=== PATIENT | female | born 1995 | race Caucasian/White ===

== ENCOUNTER 2021-04-11 14:11 | Outpatient (CLI) | payer OTHER ==
--- NOTE | 2021-04-11 16:14 | MRI Report ---
PROCEDURE: Knee RT W/O INDICATIONS: RIGHT KNEE PAIN TECHNIQUE: Noncontrast sagittal PD fast spin echo and T2 fast spin echo with fat saturation, sagittal 3-D gradie nt sequence with fat saturation; coronal T1 spin echo and PD fast spin echo with fat saturation, and axial PD fast spin echo with fat saturation through the knee. COMPARISON: None. Findings: Medial meniscus: No surface communication/tear. Lateral meniscus: No surface communication/tear. LIGAMENTS/TENDONS: Patellar tendon: Intact. Distal quadriceps tendon: Intact. Hoffa's fat pad: No evidence of fibrosis or mass. PCL: Intact. ACL: Intact. Lateral collateral ligament complex: No significant abnormality. Posterolateral corner: No significant abnormality. Medial collateral ligament: No significant abnormality.. MARROW: No significant abnormality. CARTILAGE: No significant chondromalacia, cartilaginous laceration or contusion. Muscles: No significant edema or atrophy. Joint effusion/Quiñonez's cyst: No large joint effusion or Quiñonez's cyst. Subcutaneous soft tissues: No significant edema. IMPRESSION: 1. No evidence of internal derangement. Reviewed by: Ja Barron MD on 04/11/2021 4:13 PM PDT Approved by: Ja Barron MD on 04/11/2021 4:13 PM PDT Station ID: [id number]
== END 2021-04-11 14:12 | disposition home or self-care (01) ==
LOC: DI 14:11
PROVIDERS: ATTEND Family Medicine
DX: M25.561 Pain in right knee (principal)

== ENCOUNTER 2023-08-07 08:06 | Outpatient (CLI) | payer OTHER ==
[2023-08-07 08:44] LABS: ALBUMIN 4.7 g/dL (3.2-5.5); CALCIUM 9.7 mg/dL (8.5-10.3); CREATININE 0.7 mg/dL (0.6-1.3); PHOSPHORUS 3.9 mg/dL (2.5-5.0); POTASSIUM 3.8 mmol/L (3.5-4.5)
[2023-08-08 07:10] LABS: ESTRADIOL 52.7 pg/mL (.)
[2023-08-13 13:10] LABS: METANEPHRINE PLASMA 20.6 pg/mL (0.0-88.0); NORMETANEPHRINE PLASMA 35.1 pg/mL (0.0-210.1)
== END 2023-08-07 08:07 | disposition home or self-care (01) ==
LOC: LAB 08:06
PROVIDERS: ATTEND Student in an Organized Health Care Education/Training Program
DX: E27.8 Other specified disorders of adrenal gland (principal)
CPT/HCPCS: 36415; 80069; 81599; 82627; 82670; 83835; 84402; 84403

== ENCOUNTER 2023-10-24 13:10 | Outpatient (CLI) | payer OTHER | END 2023-10-24 13:11 | disposition home or self-care (01) | LOC: LAB 13:10 | PROVIDERS: ATTEND Student in an Organized Health Care Education/Training Program | DX: E27.8 Other specified disorders of adrenal gland (principal) | CPT/HCPCS: 36415; 81599; 83835 ==